=== PATIENT | female | born 1990 | race Two or more races ===

== ENCOUNTER → 2018-11-19 | Day surgery (SDC) | payer MEDICAID ==
[~2018-11-19] VITALS: Ht 157.5 cm; Wt 80.7 kg
[~2018-11-19] MED LIST: CHLORHEXIDINE 4% TOPICAL soln 118ml TOP ONE; CLINDAMYCIN 600MG IV 50 ML IV ONE; DexAMETHasone SOD PHOS 10MG/1ML VIAL INJ ONE; LACTATED RINGER'S 1,000 ML IV SCH; MIDAZOLAM HCL 1MG/1ML-2 ML VIAL ONE; ONDANSETRON HCL 4 MG/2 ML VIAL IV ONE; ONDANSETRON HCL 4 MG/2 ML VIAL IV PRN; ONDANSETRON HCL 4 MG/2 ML VIAL ONE; PROPOFOL 10 MG/ML 20 ML IV ONE; ROCURONIUM 10MG/ML 10ML VIAL IV ONE; SUCCINYLCHOLINE CHLORIDE 20 MG/ML 10ML VIAL IV ONE; fentaNYL CITRATE 100 MCG/2 ML VL ONE
[2018-11-19] MEDS: HYDROmorphone HCL 2 MG/ML VL IV PRN ×2 (09:10→09:20)
[2018-11-19 09:48] VITALS: BP 111/77
== END | disposition home or self-care (01) ==
LOC: SUR 06:21
PROVIDERS: ATTEND Obstetrics & Gynecology
DX: Z30.2 Encounter for sterilization (principal); I10 Essential (primary) hypertension; E66.9 Obesity, unspecified; Z88.0 Allergy status to penicillin; Z91.041 Radiographic dye allergy status; Z87.59 Personal history of other complications of pregnancy, childbirth and the puerperium; Z68.32 Body mass index [BMI] 32.0-32.9, adult
CPT/HCPCS: 58671; 86850; 86900; 86901; J0330; J1100; J1170; J2250; J2405; J2704; J3010; J3490